=== PATIENT | female | born 2000 | race Caucasian/White ===

== ENCOUNTER 2020-02-01 19:40 | Inpatient (IN) | payer MEDICAID, SELFPAY ==
[~2020-02-01] VITALS: Ht 162.6 cm; Wt 109.3 kg
--- NOTE | 2020-02-01 19:45 | NUR ---
Patient to ER bed 3 to gown for evaluation. Side rails up.
--- NOTE | 2020-02-01 19:45 | NUR ---
ER Dr. Holman at bedside examining patient.
--- NOTE | 2020-02-01 19:45 | NUR ---
Patient BIB by BLS/EMS. C/O under influence x today. Per reported, patient used Meth, found outside the friend's property- had libertarian, started IV line at the scence. Patient states " used Meth all day, regulary used Meth around 4 times a week." Hx Depression, Anxiety disorder, Schizophrenia and Bipolar. A/O,X4, anxious per patient, no SOB, place patient on surveillance system monitor and pulse ox,
[2020-02-01] MEDS ORDERED: NACL 0.9% 1,000 ML IV ONE ×2 (20:15→22:45)
--- NOTE | 2020-02-01 20:16 | NUR ---
Blood for labwork drawn from gambreler. Patient tolerated well.
--- NOTE | 2020-02-01 20:55 | NUR ---
Patient transported to radiology via wheelchair, accompanied by RT.
[2020-02-01 20:56] LABS: BILIRUBIN,URINE 1+ (NEGATIVE); BLOOD, URINE NEGATIVE (NEGATIVE); CLARITY/URINE TURBID (CLEAR); GLUCOSE,URINE NEGATIVE (NEGATIVE); KETONES,URINE NEGATIVE (NEGATIVE); LEUKOCYTE ESTERASE ,URINE NEGATIVE (NEGATIVE); NITRITE, URINE NEGATIVE (NEGATIVE); PROTEIN URINE 1+ (NEGATIVE)
[2020-02-01 20:57] LABS: COLOR,URINE AMBER (YELLOW)
--- NOTE | 2020-02-01 21:07 | NUR ---
X-ray at bedside.
[2020-02-01 21:11] LABS: URINE AMPHETAMINE POSITIVE (NEG <=500)
[2020-02-01 21:12] LABS: BASOPHILS # (AUTO) 0.1 K/uL (0.0-0.2); BASOPHILS % (AUTO) 0.4 % (0.0-2.0); HEMATOCRIT 36.3 % (36-48); HEMOGLOBIN 12.1 g/dL (12.0-16.0); LYMPHOCYTES # (AUTO) 2.7 K/uL (1.0-5.5); LYMPHOCYTES % (AUTO) 16.5 % (20.5-51.5); MEAN CORPUSCULAR HEMOGLOBIN 31 pg (27-31); MEAN CORPUSCULAR HGB CONC 33 % (32-36); MEAN CORPUSCULAR VOLUME 93 fL (79.0-98.0); MONOCYTES # (AUTO) 1.4 K/uL (0.0-1.0); MONOCYTES % (AUTO) 8.9 % (1.7-9.3); NEUTROPHILS # (AUTO) 12.1 K/uL (1.8-7.7); NEUTROPHILS % (AUTO) 74.2 % (40.0-70.0); PLATELET COUNT (AUTO) 246 K/uL (130-430); RED BLOOD CELL COUNT(AUTO) 3.89 MIL/uL (4.2-6.2); RED CELL DISTRIBUTION WIDTH 13.3 % (9.0-15.0); WHITE BLOOD COUNT (AUTO) 16.3 K/uL (4.8-10.8)
[2020-02-01 21:12] LABS: BARBITURATE, URINE NEGATIVE (NEG <=200); BENZODIAZEPINE, URINE NEGATIVE (NEG <=150); CANNABINOID, URINE NEGATIVE (NEG <=50); COCAINE, URINE NEGATIVE (NEG <=150); METHAMPHETAMINES SCREEN,URINE POSITIVE (NEG <=500); OPIATE, URINE NEGATIVE (NEG <=100); PHENCYCLIDINE SCREEN,URINE NEGATIVE (NEG <=25); UR TRICYCLIC ANTIDEPRESSANTS NEGATIVE (NEG <=300); URINE METHADONE NEGATIVE (NEG <=200); URINE OXYCODONE SCREEN NEGATIVE (NEG <=100); URINE PROPOXYPHENE SCREEN NEGATIVE (NEG <=300)
--- NOTE | 2020-02-01 21:12 | NUR ---
Swabbed Covid-19 as order and sent to lab.
[2020-02-01 21:18] LABS: BACTERIA,URINE MANY /HPF (None Seen); HYALINE CASTS, URINE 0-10 /LPF (None Seen); RBC,URINE 0-3 /HPF (0-3); WBC,URINE 0-3 /HPF (0-3)
[2020-02-01 21:19] LABS: OTHER CRYSTALS,URINE AMMONIUM BIURATES 3+ /HPF (None Seen)
[2020-02-01 21:33] LABS: ANION GAP 10 (5-15); CALCIUM 8.3 mg/dL (8.4-11.0); CHLORIDE 102 mmol/L (98-107); CREATININE 0.77 mg/dL (0.55-1.30); GLUCOSE 111 mg/dL (70-99); POTASSIUM 3.2 mmol/L (3.5-5.1); SODIUM SERUM 139 mmol/L (136-145); UREA NITROGEN, BLOOD 8 mg/dL (8-21)
[2020-02-01 21:36] LABS: PROTHROMBIN TIME 10.4 SECS (9.5-12.5)
[2020-02-01 21:40] LABS: ALANINE AMINOTRANSFERASE 34 U/L (12-78); ALBUMIN 3.7 g/dL (3.4-4.8); ASPARTATE AMINOTRANSFERASE 31 U/L (10-37); TOTAL BILIRUBIN 0.8 mg/dL (0.0-1.0)
[2020-02-01 21:42] LABS: ALCOHOL, BLOOD < 3 mg/dL (<10); GFR AFRICAN AMERICAN 122 mL/min (>90)
[2020-02-01 21:43] LABS: ACETAMINOPHEN < 1 ug/mL (1-30)
[2020-02-01 22:08] LABS: CKMB RELATIVE INDEX 0.3 (0.0-2.9); CREATINE KINASE MB 1.5 ng/mL (0-3.6)
--- NOTE | 2020-02-01 23:34 | NUR ---
Patient states " I am hearing 3 voices right now." Patient spoke with herself., Dr. Holman notified.
[2020-02-01] MEDS ORDERED: HALOPERIDOL LACTATE 5 MG/ML VIAL IM ONE (23:45)
[2020-02-01] MEDS ORDERED: LORazepam 2 MG/ML VIAL IM ONE (23:45)
--- NOTE | 2020-02-01 23:45 | NUR ---
PT IS DELUSIONAL AND HAS AUDITORY HALLUCINATIONS. PT SPEAKING LOUD AND HAVING MULTIPLE CONVERSATIONS WITH HERSELF. PT MEDICATED FOR STABILIZATION-SEE MAR. PT TOLERATED WELL.
--- NOTE | 2020-02-02 00:11 | NUR ---
Patient resting quietly. No acute distress noted. Vital signs within normal range.
[2020-02-02 00:40] LABS: CKMB RELATIVE INDEX 0.2 (0.0-2.9); CREATINE KINASE MB 1.3 ng/mL (0-3.6)
--- NOTE | 2020-02-02 01:30 | NUR ---
Patient resting quietly. No acute distress noted. Vital signs within normal range.
[2020-02-02] MEDS ORDERED: POTASSIUM CHLORIDE 20 MEQ TAB.PRT.SR PO ONE (02:30)
[2020-02-02] MEDS ORDERED: LORazepam 2 MG/ML VIAL IVP PRN (02:30)
--- NOTE | 2020-02-02 03:07 | NUR ---
Patient will be admitted to care of Dr. Carrillo. Admitted to Tele unit. Will go to room 104B. Belongings list completed. Complete and up to date summary report printed. SBAR report to be given at bedside with opportunity for questions.
--- NOTE | 2020-02-02 03:28 | NUR ---
ADMIT NOTE Received pt from ER to the floor with a diagnosis of phabdomyolysis, hypokalemia. Admission process initiated. patient oriented to pain management, safety and call light-teach back done.
[2020-02-02] MEDS: LR 1,000 ML IV SCH ×3 (03:44→18:09)
[2020-02-02 03:46] VITALS: BP_SYST 113
--- NOTE | 2020-02-02 04:00 | NUR ---
OPENING NOTE PATIENT ASLEEP AT THIS TIME. PATIENT AOX1-2. NO SIGNS OF RESPIRATORY DISTRESS AND DISCOMFORT NOTED. BREATHING EVEN AND UNLABORED. IVF INFUSING WELL. CALL LIGHT WITHIN REACH. PATIENT WAS EDUCATED TO USE CALL LIGHT WHEN ASSISTANCE IS NEEDED, PATIENT UNABLE TO DEMONSTRATE THE PROPER USE OF CALL LIGHT. BED LOCKED AND LOWEST POSITION. BED ALARM ON. SAFETY PRECAUTIONS IN PLACE. WILL CONTINUE TO MONITOR PATIENT
--- NOTE | 2020-02-02 04:34 | NUR ---
CONSULTATION PAGED/CALLED Reason for Consultation: AUDITORY HALLUCINATIONS Person Who was Notified: VALENTIN Consulting Physician:DOCTOR FAUSTINO BARRIGA IS BULK TANK DRIVER Door Machine Operator Specialty: Ordering Physician: CHARLIE
--- NOTE | 2020-02-02 06:41 | NUR ---
CLOSING NOTE PATIENT ASLEEP, NO SIGNS OF RESPIRATORY DISTRESS AND DISCOMFORT NOTED. BREATHING EVEN AND UNLABORED. ON ROOM AIR TOLERATING WELL. IVF INFUSING WELL. CALL LIGHT WITHIN REACH. BED LOCKED AND IN LOWEST POSITION. BED ALARM ON. SIDE RAILS UP. SAFETY PRECAUTION IN PLACE. ALL NEEDS MET THROUGHOUT THE SHIFT. WILL CONTINUE TO MONITOR PATIENT UNTIL ENDORSE TO ONCOMING SHIFT NURSE FOR CONTINUITY OF CARE.
--- NOTE | 2020-02-02 07:30 | NUR ---
OPENING NOTES: RECEIVED PATIENT FROM PAPER REWINDER OPERATOR NURSE. PATIENT IS ASLEEP LAYING DOWN IN BED. PATIENT IS TOLERATING OXYGEN ON ROOM AIR WITH NO SIGNS OF DISTRESS OR SHORTNESS OF BREATH NOTED. IV SITE IS PATENT WITH NO SIGNS OF INFILTRATION NOTED. PATIENT IN STABLE CONDITION. SAFETY, FALL AND ASPIRATION PRECAUTIONS ARE IN PLACE. BED LOCKED IN LOWEST POSITION WITH CALL LIGHT IN REACH. WILL CONTINUE TO MONITOR PATIENT FOR ANY CHANGES.
[2020-02-02 08:24] VITALS: BP_SYST 101
--- NOTE | 2020-02-02 10:26 | NUR ---
RN ROUNDS: PATIENT IS ASLEEP LAYING DOWN IN BED. PATIENT IS TOLERATING OXYGEN ON ROOM AIR WITH NO SIGNS OF DISTRESS OR SHORTNESS OF BREATH NOTED. IV SITE IS PATENT WITH NO SIGNS OF INFILTRATION NOTED. PATIENT IN STABLE CONDITION. WILL CONTINUE TO MONITOR PATIENT FOR ANY CHANGES.
[2020-02-02 10:33] LABS: CALCIUM 7.5 mg/dL (8.4-11.0); CREATININE 0.59 mg/dL (0.55-1.30); POTASSIUM 3.3 mmol/L (3.5-5.1)
[2020-02-02 10:38] LABS: BASOPHILS # (AUTO) 0.1 K/uL (0.0-0.2); BASOPHILS % (AUTO) 1.2 % (0.0-2.0); EOSINOPHILS # (AUTO) 0.1 K/uL (0.0-0.4); EOSINOPHILS % (AUTO) 1.3 % (0.0-4.0); HEMATOCRIT 33.9 % (36-48); HEMOGLOBIN 11.4 g/dL (12.0-16.0); LYMPHOCYTES # (AUTO) 3.1 K/uL (1.0-5.5); LYMPHOCYTES % (AUTO) 49.5 % (20.5-51.5); MEAN CORPUSCULAR HEMOGLOBIN 31 pg (27-31); MEAN CORPUSCULAR HGB CONC 34 % (32-36); MEAN CORPUSCULAR VOLUME 94 fL (79.0-98.0); MONOCYTES # (AUTO) 0.4 K/uL (0.0-1.0); MONOCYTES % (AUTO) 7.1 % (1.7-9.3); NEUTROPHILS # (AUTO) 2.6 K/uL (1.8-7.7); NEUTROPHILS % (AUTO) 40.9 % (40.0-70.0); PLATELET COUNT (AUTO) 208 K/uL (130-430); RED BLOOD CELL COUNT(AUTO) 3.62 MIL/uL (4.2-6.2); RED CELL DISTRIBUTION WIDTH 13.6 % (9.0-15.0); WHITE BLOOD COUNT (AUTO) 6.3 K/uL (4.8-10.8)
[2020-02-02 11:23] LABS: CKMB RELATIVE INDEX 0.4 (0.0-2.9); CREATINE KINASE MB 1.6 ng/mL (0-3.6)
[2020-02-02 11:58] VITALS: BP_SYST 107
--- NOTE | 2020-02-02 12:17 | NUR ---
RN ROUNDS: PATIENT IS AWAKE AND ALERT x3 LAYING DOWN IN BED. PATIENT IS TOLERATING OXYGEN ON ROOM AIR WITH NO SIGNS OF DISTRESS OR SHORTNESS OF BREATH NOTED. IV SITE IS PATENT WITH NO SIGNS OF INFILTRATION NOTED. PATIENT IN STABLE CONDITION. WILL CONTINUE TO MONITOR PATIENT FOR ANY CHANGES.
--- NOTE | 2020-02-02 14:30 | NUR ---
RN ROUNDS: PATIENT IS AWAKE AND ALERT x3 LAYING DOWN IN BED WATCHING TELEVISION. PATIENT DENIES ANY PAIN AT THE MOMENT. PATIENT IS TOLERATING OXYGEN ON ROOM AIR WITH NO SIGNS OF DISTRESS OR SHORTNESS OF BREATH NOTED. IV SITE PATENT AND RUNNING FLUIDS ORDERED. PATIENT IN STABLE CONDITION. WILL CONTINUE TO MONITOR PATIENT FOR ANY CHANGES.
[2020-02-02 16:10] VITALS: BP_SYST 116
--- NOTE | 2020-02-02 16:19 | NUR ---
RN ROUNDS: PATIENT IS AWAKE AND ALERT x3 WALKING AROUND THE ROOM. PATIENT USED THE RESTROOM AND WALKED STEADY BACK INTO BED. PATIENT REQUESTED SNACKS. SANDWICH, PUDDING AND APPLE JUICE GIVEN TO PATIENT. PATIENT TOLERATING THEM WELL. IV SITE IS PATENT AND RUNNING FLUIDS ORDERED. PATIENT IN STABLE CONDITION. WILL CONTINUE TO MONITOR PATIENT FOR ANY CHANGES.
--- NOTE | 2020-02-02 18:35 | NUR ---
CLOSING NOTES: PATIENT IS AWAKE AND ALERT x3 SITTING UP IN BED EATING DINNER. PATIENT IS TOLERATING OXYGEN ON ROOM AIR WITH NO SIGNS OF DISTRESS OR SHORTNESS OF BREATH NOTED. IV SITE IS PATENT WITH NO SIGNS OF INFILTRATION NOTED AND RUNNING FLUIDS ORDERED. PATIENT IN STABLE CONDITION. SAFETY, FALL AND ASPIRATION PRECAUTIONS REMAINED IN PLACE THROUGHOUT THE SHIFT. BED LOCKED IN LOWEST POSITION WITH CALL LIGHT IN REACH. WILL ENDORSE PATIENT CARE TO ONCOMING CERAMIC SPRAYER NURSE.
[2020-02-02 20:00] VITALS: BP_SYST 123
--- NOTE | 2020-02-02 20:00 | NUR ---
Pt A/o x4. No distress noted or reported. Pt denied any pain or discomfort. Pt requested snack. Snack given (pudding, jello and orange juice). VS stable. PIV patent, site without signs of infiltration. SZ precautions in place. NO SZ noted. Pt ambulatory independently. All safety precautions in place. All belongings and call light within reach. Will continue to monitor.
--- NOTE | 2020-02-02 22:15 | NUR ---
No distress noted or reported. Pt utilizing smart phone. All needs tended to. Monitoring continued.
[2020-02-02] MEDS: MIRTAZAPINE 15 MG TABLET PO SCH (22:55)
[2020-02-02] MEDS: DIVALPROEX SODIUM 250 MG TABLET(DEPAKOTE) PO SCH (22:55)
[2020-02-02] MEDS: HALOPERIDOL 5 MG TABLET (HALDOL) PO SCH (22:57)
[2020-02-03] VITALS: BP_SYST 118
--- NOTE | 2020-02-03 00:15 | NUR ---
Pt asleep at this time. VS stable. No distress noted or reported. Monitoring continued.
[2020-02-03] MEDS: LR 1,000 ML IV SCH ×3 (01:59→16:09)
--- NOTE | 2020-02-03 02:15 | NUR ---
Pt asleep at this time. No distress noted or reported. Monitoring continued.
--- NOTE | 2020-02-03 04:15 | NUR ---
Pt asleep at this time. VS stable. No distress noted or reported. Monitoring continued.
--- NOTE | 2020-02-03 06:15 | NUR ---
Pt still asleep at this time. VS stable. No SZ activity noted during shift. No adverse events during shift. Pt safety maintained. During shift.
[2020-02-03 06:51] LABS: BASOPHILS # (AUTO) 0.1 K/uL (0.0-0.2); BASOPHILS % (AUTO) 0.9 % (0.0-2.0); EOSINOPHILS # (AUTO) 0.1 K/uL (0.0-0.4); EOSINOPHILS % (AUTO) 2.3 % (0.0-4.0); HEMATOCRIT 33.7 % (36-48); HEMOGLOBIN 11.3 g/dL (12.0-16.0); LYMPHOCYTES # (AUTO) 3.2 K/uL (1.0-5.5); LYMPHOCYTES % (AUTO) 55.5 % (20.5-51.5); MEAN CORPUSCULAR HEMOGLOBIN 32 pg (27-31); MEAN CORPUSCULAR HGB CONC 34 % (32-36); MEAN CORPUSCULAR VOLUME 94 fL (79.0-98.0); MONOCYTES # (AUTO) 0.4 K/uL (0.0-1.0); MONOCYTES % (AUTO) 7.2 % (1.7-9.3); NEUTROPHILS % (AUTO) 34.1 % (40.0-70.0); PLATELET COUNT (AUTO) 195 K/uL (130-430); RED BLOOD CELL COUNT(AUTO) 3.59 MIL/uL (4.2-6.2); RED CELL DISTRIBUTION WIDTH 13.2 % (9.0-15.0); WHITE BLOOD COUNT (AUTO) 5.7 K/uL (4.8-10.8)
[2020-02-03 07:16] LABS: ALBUMIN 2.8 g/dL (3.4-4.8); CALCIUM 7.9 mg/dL (8.4-11.0); CREATININE 0.48 mg/dL (0.55-1.30); POTASSIUM 3.5 mmol/L (3.5-5.1); TOTAL BILIRUBIN 0.3 mg/dL (0.0-1.0)
--- NOTE | 2020-02-03 07:30 | NUR ---
OPENING NOTES: RECEIVED PATIENT FROM EDGE PLUGGER NURSE. PATIENT IS ASLEEP LAYING DOWN IN BED. PATIENT IS TOLERATING OXYGEN ON ROOM AIR WITH NO SIGNS OF DISTRESS OR SHORTNESS OF BREATH NOTED. IV SITE IS PATENT WITH NO SIGNS OF INFILTRATION NOTED. PATIENT IN STABLE CONDITION. SAFETY, FALL AND ASPIRATION PRECAUTIONS ARE IN PLACE. BED LOCKED IN LOWEST POSITION WITH CALL LIGHT IN REACH. WILL CONTINUE TO MONITOR PATIENT FOR ANY CHANGES.
[2020-02-03 08:00] VITALS: BP_SYST 109
[2020-02-03] MEDS: HALOPERIDOL 5 MG TABLET (HALDOL) PO SCH (08:14)
[2020-02-03] MEDS: DIVALPROEX SODIUM 250 MG TABLET(DEPAKOTE) PO SCH ×2 (08:14→21:09)
--- NOTE | 2020-02-03 12:10 | NUR ---
RN ROUNDS: PATIENT IS AWAKE AND ALERT x4 SITTING UP IN BED. PATIENT IS TOLERATING OXYGEN ON ROOM AIR WITH NO SIGNS OF DISTRESS OR SHORTNESS OF BREATH NOTED. PATIENT DENIES ANY PAIN AT THE MOMENT. LUNCH TRAY GIVEN TO PATIENT AND WATER PITCHER. PATIENT STATED SHE DID NOT NEED ANYTHING ELSE. PATIENT IN STABLE CONDITION. WILL CONTINUE TO MONITOR PATIENT FOR ANY CHANGES.
[2020-02-03 12:15] VITALS: BP_SYST 119
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
--- NOTE | 2020-02-03 14:45 | NUR ---
RN ROUNDS: PATIENT IS ASLEEP LAYING DOWN IN BED. AWAKES WITH VERBAL STIMULI. PATIENT STATED SHE DID NOT NEED ANYTHING AND THAT SHE WAS GOOD. IV SITE IS PATENT WITH NO SIGNS OF INFILTRATION NOTED. PATIENT TOLERATING ROOM AIR WITH NO SIGNS OF DISTRESS OR SHORTNESS OF BREATH NOTED. PATIENT IN STABLE CONDITION. WILL CONTINUE TO MONITOR PATIENT FOR ANY CHANGES.
[2020-02-03 16:11] VITALS: BP_SYST 109
--- NOTE | 2020-02-03 16:15 | NUR ---
RN ROUNDS/ MD ROUNDS: PATIENT IS AWAKE AND ALERT x4 LAYING DOWN IN BED. PATIENT DENIES ANY PAIN AT THE MOMENT. PATIENT IS TOLERATING OXYGEN ON ROOM AIR WITH NO SIGNS OF DISTRESS OR SHORTNESS OF BREATH NOTED. DR. GUERRA MAKING HIS ROUNDS. AWARE OF PATIENT'S CONDITION. INFORMED HIM THAT PATIENT IS UNABLE TO GO TO A PSYCH FACILITY SINCE PATIENT DOES NOT QUALIFY FOR 5150 HOLD. MD AWARE. AWAITING NEW ORDERS. PATIENT IN STABLE CONDITION. WILL CONTINUE TO MONITOR PATIENT FOR ANY CHANGES.
--- NOTE | 2020-02-03 16:23 | NUR ---
DC Planning: requesting WARD Perez to inform dr. Carrillo that the pt does not meet 5150 hold criteria per psych consult. CM is unable to arrange the psych facility transfer. The pt will need to be dc home with voluntary to self adm to psych facility.
[2020-02-03 17:07] VITALS: BP_SYST 109
[2020-02-03] MEDS ORDERED: HAL5 PO (17:22)
[2020-02-03] MEDS ORDERED: Divalproex Sodium PO (17:22)
--- NOTE | 2020-02-03 19:00 | NUR ---
CLOSING NOTES: PATIENT IS AWAKE AND ALERT x4 LAYING DOWN IN BED. PATIENT IS TOLERATING OXYGEN ON ROOM AIR WITH NO SIGNS OF DISTRESS OR SHORTNESS OF BREATH NOTED. IV SITE WAS REMOVED. PATIENT READY TO BE DISCHARGED. AWAITING TAXI RIDE. PATIENT IN STABLE CONDITION. SAFETY, FALL AND ASPIRATION PRECAUTIONS REMAINED IN PLACE THROUGHOUT THE SHIFT. BED LOCKED IN LOWEST POSITION WITH CALL LIGHT IN REACH. WILL ENDORSE PATIENT CARE TO ONCOMING DRUG ABUSE PROGRAM COORDINATOR NURSE.
--- NOTE | 2020-02-03 19:30 | NUR ---
CHANGE OF SHIFT; PT. READY FOR DISCHARGE, TAXI VOUCHER GIVEN BY NURSE MALDONADO. DISCHARGE INSTRUCTIONS GIVE TO PT. BY HER. PT. ALERT AND ORIENTED.
[2020-02-03 19:45] VITALS: BP_SYST 110
--- NOTE | 2020-02-03 19:50 | NUR ---
NOTES: asked radiation monitor to call pt. transport to follow up, pt. informed about the delay. pt. resting in bed. call light within reach.
[2020-02-03] MEDS: MIRTAZAPINE 15 MG TABLET PO SCH (21:09)
--- NOTE | 2020-02-03 21:10 | NUR ---
NOTES: due medications given. still waiting for transport. pt. calm and resting.
--- NOTE | 2020-02-03 21:35 | NUR ---
NOTES: asked nurse Ambreen to wheel pt. out. condition stable , with Taxi voucher.
--- NOTE | 2020-02-03 21:38 | NUR ---
DISCHARGE: PTS IV AND TELEMONITOR IS REMOVED BY PRIMARY RN , ID BAND REMOVED ; DC INSTRUCTION WAS ALREADY GIVEN BY PRIMARY RN ; PT REFUSED WHEELCHAIR STATED SHE CAN WALK WELL , PT AMBULATED WELL ; TAXI CAR WAITING AT THE FRONT; NIB ADJUSTER NAME LEIA SAUCEDA NO [id number] , BY [facility] [employer] [facility]. VOUTURE IS GIVEN TO THE ART CONSULTANT . I VERIFIED THE NAME OF THE PT WITH THE NIB ADJUSTER . PT IS STABLE ; NOT IN ANY ACUTE DISTRESS.
--- NOTE | 2020-02-04 10:06 | NUR ---
SS NOTE/COMM REFERRAL: RETAIL AGENT spoke with Renee Powell, P Navigator for service area 8. [facility] Referral application faxed.
--- NOTE | 2020-02-12 15:04 | NUR ---
SS NOTES: STEM MOUNTER received a call from Brooklynn from [facility] "[facility]" (p: [phone]) regarding the [facility] referral that was sent. Brooklynn has been trying to get a hold of the patient and mother and left multiple messages for pt to call back. If patient calls SS, please provide patient with Brooklynn's contact number.
== END 2020-02-03 21:35 | disposition home or self-care (01) | DRG 351 ==
LOC: SED 19:40 → EDBD 19:40 → STU 02-02 02:17
PROVIDERS: ADMIT Internal Medicine; ATTEND Internal Medicine
DX: M62.82 Rhabdomyolysis (principal); G92 Toxic encephalopathy; E66.01 Morbid (severe) obesity due to excess calories; F41.9 Anxiety disorder, unspecified; F25.9 Schizoaffective disorder, unspecified; F31.9 Bipolar disorder, unspecified; F15.10 Other stimulant abuse, uncomplicated; F14.10 Cocaine abuse, uncomplicated; E44.1 Mild protein-calorie malnutrition; E87.6 Hypokalemia; Z20.828 Contact with and (suspected) exposure to other viral communicable diseases; Z91.09 Other allergy status, other than to drugs and biological substances; Z59.0 Homelessness; Z72.89 Other problems related to lifestyle; Z68.41 Body mass index [BMI] 40.0-44.9, adult
CPT/HCPCS: 36415; 70450-TC; 71045; 80048; 80053; 80307; 81000-TC; 82140-TC; 82550-TC; 82553-TC; 84484; 84703; 85025; 85610-TC; 87086; 93005; 96360; 96361; 96372; 99285; G0378; G0480; G0481; G0482; J1630; J2060; J7120